=== PATIENT | male | born 1965 | race Caucasian/White ===

== ENCOUNTER 2016-11-01 09:47 | Emergency (ER) | payer OTHER ==
--- NOTE | ~2016-11-01 | CR181 ---
[facility] A Service of [facility] & [facility] RADIOLOGY TEXT RESULTS PATIENT: LEAH FRIAS LOCATION: [facility] : 63 UNIT #: [id number] AGE: [address]: Blaine Naik MD SEX: M ORDER DR: [id number] [facility] [address] [place], [place] [address] [id number] MR#: [id number] Acc #: [id number] NAME: LEAH FRIAS. : 1965 SEX: M STUDY DATE/TIME: 11/01/2016 10:57 UNIT: [facility] ROOM: STUDY DESCRIPTION: CR Lumbar Spine 2 or 3 Views Attending Physician: Blaine Naik M.D. Ordering Physician: Blaine Naik M.D. Primary Care Physician: No Primary Care Physician MEDICAL IMAGING REPORT This report is preliminary unless electronic signature is present EXAM Lumbar spine series, 11/01/2016. HISTORY Trauma, pain 1 week. Thinks he lifted a generator wrong. TECHNIQUE AP and 2 lateral views of the lumbar spine are presented. FINDINGS No fracture or malalignment. Mild narrowing L5-S1 intervertebral disc space. Vertebral body heights normal. Facet joint relationship normal. Visualized lower thoracic spine and visualized bony pelvis unremarkable. The bowel gas pattern is within normal limits. Visualized lung bases clear. Dictated by... Nabil Hutchinson M.D. THIS IS AN ELECTRONICALLY VERIFIED REPORT Nabil Hutchinson M.D. at 11/02/2016 5:58 PM [email or web address]/[email or web address] TD: 11/01/2016 13:38 JOB #: [id number] MEDICAL IMAGING REPORT Page 1 of 1 COPY
[~2016-11-01 09:47] MED LIST: FLEXERIL10 M1; NO MEDICATIONS; PHENERGAN25 M1 PO; TYLENOL #3 PO; VOLTAREN75 MG
== END 2016-11-01 12:06 | disposition home or self-care (01) ==
LOC: CED 09:47
DX: S39.012A Strain of muscle, fascia and tendon of lower back, initial encounter (principal); X58.XXXA Exposure to other specified factors, initial encounter; Y92.9 Unspecified place or not applicable
CPT/HCPCS: 72100; 99283; J1885